=== PATIENT | female | born 1950 | race Caucasian/White ===

== ENCOUNTER 2021-02-08 21:14 | Inpatient (IN) | payer OTHER, MEDICAID ==
[~2021-02-08] VITALS: Ht 167.6 cm; Wt 58.0 kg
[~2021-02-08 21:14] MED LIST: ACET325T9 PO; ALPR1TAB2 PO; GUAI100L12 PO; HYDR-2759 PO; IPRA3AMP29 NEB; LINZESS145 MCG PO; LISI-130 PO; PANT40TA77 PO; POLY17PO52 PO; POTA-121 PO; TRAZ-118 PO; amlodipine; fluoxetine; simvastatin
[2021-02-08] MEDS ORDERED: IV NORMAL SALINE 1000ML BAG 1,000 ML IV ONE (21:30)
[2021-02-08 21:49] LABS: BASO % 0 % (0-3); EOS # 0.2 x10^3/uL (0.0-0.7); EOS % 3 % (0-3); HEMATOCRIT 34.5 % (36.0-47.0); HEMOGLOBIN 11.3 g/dL (12.0-15.5); LYMPH % 12 % (24-48); MEAN CORPUSCULAR HEMOGLOBIN 30 pg (25-35); MEAN CORPUSCULAR HGB CONC 33 g/dL (31-37); MEAN CORPUSCULAR VOLUME 93 fL (79-100); MONO # 0.5 x10^3/uL (0.0-1.1); MONO % 6 % (0-9); NEUT % 80 % (31-73); PLATELET COUNT 220 x10^3/uL (140-400); RED BLOOD COUNT 3.72 x10^6/uL (3.50-5.40); RED CELL DISTRIBUTION WIDTH 14.9 % (11.5-14.5); WHITE BLOOD COUNT 8.8 x10^3/uL (4.0-11.0)
[2021-02-08 21:58] LABS: CALCIUM 8.8 mg/dL (8.5-10.1); CREATININE 2.2 mg/dL (0.6-1.0); GFR 22.1; POTASSIUM 4.4 mmol/L (3.5-5.1)
[2021-02-08 22:03] LABS: ALBUMIN/GLOBULIN RATIO 0.9 (1.0-1.7); TOTAL BILIRUBIN 0.4 mg/dL (0.2-1.0); TOTAL PROTEIN 6.4 g/dL (6.4-8.2)
--- NOTE | 2021-02-08 22:51 | RAD ---
STUDY: CT head without contrast INDICATION: Fall. Head injury. COMPARISON: None. TECHNIQUE: Axial CT imaging through the head without the use of intravenous contrast. Sagittal and co denis reformats were obtained. One or more of the following individualized dose reduction techniques were utilized for this examinat ion: 1. Automated exposure control 2. Adjustment of the mA and/or kV according to patient size 3. Use of iterative reconstruction technique. FINDINGS: No acute intracranial hemorrhage. No localized mass effect, midline shift or hydrocephalus. Dick-whit e matter differentiation is maintained. Possible subtle chronic audit intern infarct in the region of t he right caudate head and white matter findings related to chronic microvascular ischemic change. Par enchymal volume is within normal limits. No large scalp hematoma. Unremarkable orbits. No depressed calvarial fracture. IMPRESSION: No acute intracranial abnormality by CT. Intact calvarium. Electronically signed by: JERROD DILLON MD (02/08/2021 10:48 PM) [facility]
--- NOTE | 2021-02-08 23:10 | PHYS DOC ---
Past Medical History Past Medical History: COPD, Diverticulosis Past Surgical History: Other Additional Past Surgical Histo: COLONOSCOPY Smoking Status: Former Smoker Alcohol Use: None General Adult EDM: Chief Complaint: HYPOTENSION HPI: HPI: Patient is a 70 year old female presents for evaluation of generalized weakness fatigue and fall. Patient states throughout the day she has felt dizzy and she states to today she had a fallen onto her buttocks and then hit the back of her head. She denies any loss of consciousness. intermediate states they took patient's blood pressure and noted to be 60s over 30s. Patient was transported to the ER for further evaluation. EMS noted patient's oxygen saturation to be 88% on room air. Review of Systems: Review of Systems: Review of systems: Constitutional symptoms- No fever, no chills. Eyes- No Discharge, No Visual Loss Respiratory symptoms- No shortness of breath, No wheezing, No Dyspnea on Exertion Cardiovascular Systems; No chest pain, No Palpitations, No syncope Gastrointestinal symptoms: NO abdominal pain, no nausea, no vomiting or diarrhea. Genitourinary symptoms: No dysuria. Musculoskeletal symptoms: No back pain No extremity pain. NEUROLOGICAL Symptoms: No headache, no generalized weakness; No focal Weakness Skin: No rash. Heart Score: C/O Chest Pain: N/A Risk Factors: Risk Factors: DM, Current or recent (<one month) smoker, HTN, HLP, family history of CAD, obesity. Risk Scores: Score 0 - 3: 2.5% MACE over next 6 weeks - Discharge Home Score 4 - 6: 20.3% MACE over next 6 weeks - Admit for Clinical Observation Score 7 - 10: 72.7% MACE over next 6 weeks - Early Invasive Strategies Current Medications: Current Medications Medications (Trade) Dose Ordered Sig/[facility] Start Time Stop Time Status Last Admin Dose Admin Sodium Chloride 1,000 ml @ 1,000 mls/hr 1X ONCE 02/08/21 21:30 02/08/21 22:29 DC 02/08/21 22:00 1,000 MLS/HR Allergies: Allergies: Allergies Coded Allergies Type Severity Reaction Last Updated Verified No Known Drug Allergies 02/12/20 No Physical Exam: PE: General: alert, no acute distress. Skin: warm, dry and intact, no erythema, no rash. HENT: bilateral external ears normal, oropharynx moist, nose normal. Head:: Normocephalic, atraumatic. Neck: Trachea midline. Eyes: EOMI, Normal conjunctiva, No drainage CARDIOVASCULAR: Regular rate and rhythm RESPIRATORY: No respiratory distress Back: Full range of motion. MUSCULOSKELETAL: Full range of motion of bilateral upper and lower extremities. GASTROINTESTINAL: Abdomen soft without rebound or guarding. NEUROLOGICAL: Alert and noted to person, place and time. No neurological deficits observed Psychiatric: Cooperative. Normal judgment Current Patient Data: Labs: Laboratory Tests Test 02/08/21 21:40 White Blood Count 8.8 x10^3/uL (4.0-11.0) Red Blood Count 3.72 x10^6/uL (3.50-5.40) Hemoglobin 11.3 g/dL (12.0-15.5) L Hematocrit 34.5 % (36.0-47.0) L Mean Corpuscular Volume 93 fL (79-100) Mean Corpuscular Hemoglobin 30 pg (25-35) Mean Corpuscular Hemoglobin Concent 33 g/dL (31-37) Red Cell Distribution Width 14.9 % (11.5-14.5) H Platelet Count 220 x10^3/uL (140-400) Neutrophils (%) (Auto) 80 % (31-73) H Lymphocytes (%) (Auto) 12 % (24-48) L Monocytes (%) (Auto) 6 % (0-9) Eosinophils (%) (Auto) 3 % (0-3) Basophils (%) (Auto) 0 % (0-3) Neutrophils # (Auto) 7.0 x10^3/uL (1.8-7.7) Lymphocytes # (Auto) 1.0 x10^3/uL (1.0-4.8) Monocytes # (Auto) 0.5 x10^3/uL (0.0-1.1) Eosinophils # (Auto) 0.2 x10^3/uL (0.0-0.7) Basophils # (Auto) 0.0 x10^3/uL (0.0-0.2) Sodium Level 140 mmol/L (136-145) Potassium Level 4.4 mmol/L (3.5-5.1) Chloride Level 106 mmol/L (98-107) Carbon Dioxide Level 22 mmol/L (21-32) Anion Gap 12 (6-14) Blood Urea Nitrogen 49 mg/dL (7-20) H Creatinine 2.2 mg/dL (0.6-1.0) H Estimated GFR (Cockcroft-Gault) 22.1 BUN/Creatinine Ratio 22 (6-20) H Glucose Level 126 mg/dL (70-99) H Calcium Level 8.8 mg/dL (8.5-10.1) Total Bilirubin 0.4 mg/dL (0.2-1.0) Aspartate Amino Transferase (AST) 24 U/L (15-37) Alanine Aminotransferase (ALT) 16 U/L (14-59) Alkaline Phosphatase 113 U/L (46-116) Troponin I Quantitative < 0.017 ng/mL (0.000-0.055) Total Protein 6.4 g/dL (6.4-8.2) Albumin 3.0 g/dL (3.4-5.0) L Albumin/Globulin Ratio 0.9 (1.0-1.7) L Laboratory Tests 02/08/21 21:40 Laboratory Tests 02/08/21 21:40 Vital Signs: Vital Signs Date Time Temp Pulse Resp B/P (MAP) Pulse Ox O2 Delivery O2 Flow Rate FiO2 02/08/21 22:45 79 20 111/57 (75) 99 Nasal Cannula 2.0 02/08/21 21:14 97.4 97.4 EKG: EKG: [] Radiology/Procedures: Radiology/Procedures: [] Impression: INDICATION: Fall. Head injury. COMPARISON: None. TECHNIQUE: Axial CT imaging through the head without the use of intravenous contrast. Sagittal and coronal reformats were obtained. One or more of the following individualized dose reduction techniques were utilized for this examination: 1. Automated exposure control 2. Adjustment of the mA and/or kV according to patient size 3. Use of iterative reconstruction technique. FINDINGS: No acute intracranial hemorrhage. No localized mass effect, midline shift or hydrocephalus. Dick-white matter differentiation is maintained. Possible subtle chronic senior mechanical project manager infarct in the region of the right caudate head and white matter findings related to chronic microvascular ischemic change. Parenchymal vo lume is within normal limits. No large scalp hematoma. Unremarkable orbits. No depressed calvarial fracture. IMPRESSION: No acute intracranial abnormality by CT. Intact calvarium. Course & Med Decision Making: Course & Med Decision Making Pertinent Labs and Imaging studies reviewed. (See chart for details) []Treatment with IV fluids. Patient without any repeat episodes of hypotension. Patient admitted to Hospital. Discussed patient with PCP and Dr Cassidy. Dayne Disclaimer: Dayne Disclaimer: This electronic medical record was generated, in whole or in part, using a voice recognition dictation system. Departure Departure Impression: Primary Impression: Hypokalemia Additional Impressions: Dizziness Fall Acute renal failure Disposition: ADMITTED INPATIENT Admitting Physician: Nito Cassidy Condition: STABLE Referrals: MONISHA PENA MD (PCP) SHAHRZAD QUISPE DO Feb 08, 2021 23:10
[2021-02-09] VITALS (7 sets, daily range): BP systolic 86–131; BP diastolic 41–57
[2021-02-09] MEDS ORDERED: IV NORMAL SALINE 1000ML BAG 1,000 ML IV ONE (00:30)
[2021-02-09] MEDS ORDERED: ONDANSETRON PF 4 MG/2 ML VIAL. IVP PRN (03:15)
--- NOTE | 2021-02-09 04:35 | EKG ---
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
[2021-02-09] MEDS ORDERED: LINZESS145 MCG PO (05:47)
[2021-02-09] MEDS ORDERED: LOPE2TAB27 PO (05:47)
[2021-02-09] MEDS ORDERED: ATOR10TA60 PO (05:47)
[2021-02-09] MEDS ORDERED: GABA-585 PO (05:47)
[2021-02-09] MEDS ORDERED: VENTOLIN HFA18 GM INH (05:47)
[2021-02-09] MEDS ORDERED: BUDE10.2 IH (05:47)
[2021-02-09] MEDS ORDERED: AMLO-187 PO (05:47)
[2021-02-09] MEDS ORDERED: QUET50TA5 PO (05:47)
[2021-02-09] MEDS ORDERED: IPRA3AMP29 NEB (05:47)
[2021-02-09] MEDS ORDERED: ALPR1TAB6 PO (05:47)
[2021-02-09] MEDS ORDERED: PARO20TA3 PO (05:47)
[2021-02-09] MEDS ORDERED: TOPI50TA38 PO (05:47)
[2021-02-09] MEDS ORDERED: POLY17PO29 PO (05:47)
[2021-02-09] MEDS: IV NORMAL SALINE 1000ML BAG 1,000 ML IV SCH ×2 (05:55→16:35)
--- NOTE | 2021-02-09 10:21 | PDOC ---
Provider Note Date of Service: DATE: 02/09/21 TIME: 10:21 Provider Note dictated Justifications for Admission Other Justification JEANNETTE CAMPBELL MD Feb 09, 2021 10:21
[2021-02-09] MEDS ORDERED: NON FORMULARY ITEM (Albuterol Sulfate (Ventolin Hfa Inhaler) 2 PUFF) INH SCH (12:00)
[2021-02-09] MEDS: BUDESONIDE 0.5 MG/2 ML NEBU. NEB SCH ×2 (12:00→20:00)
--- NOTE | 2021-02-09 13:41 | HP ---
ADMIT DATE: 02/09/2021 CHIEF COMPLAINT: Weakness and dizziness. HISTORY OF PRESENT ILLNESS: A 70-year-old white female, patient of Dr. Rowley and I am covering for Dr. Cassidy. The patient has had about a month of weakness, dizziness, fatigue, low energy and was found to be hypotensive in the ER. She takes at least 2 blood pressure medicines, amlodipine and lisinopril, in maximum doses to contribute to this. She has been given some fluids and meds held so far and she is feeling a little better at this point. She has not seen Dr. Rowley on lab work for about 6 months. PAST HISTORY: Multiple meds listed per the chart. No known allergies. No other serious known medical problems. She takes antidepressants and Seroquel for an unknown psychiatric diagnosis. SOCIAL HISTORY: Smoker, nondrinker, , not employed. FAMILY HISTORY: Unremarkable. REVIEW OF SYSTEMS: Unremarkable. OBJECTIVE: ENT: Mouth looks dry. Mucosa pink and moist. Sclerae are clear. TMs and pharynx normal. NECK: Revealed no carotid bruit, stiffness, masses or nodes. LUNGS: Clear, without tachypnea. CARDIOVASCULAR: Regular rate. No tachycardia or murmur. ABDOMEN: Soft, benign and nontender. EXTREMITIES: Skin turgor decreased. Pedal pulses decreased. No active joint or skin lesions. NEUROLOGIC: Sluggish responsive, oriented x 4. No focal findings are seen. Moves all extremities. Gait was not tested. ASSESSMENT: Hypotension, drug induced, most likely from amlodipine and lisinopril. She also has some degree of acute kidney injury. Preexisting lab 1 year ago showing a GFR that was normal. This is likely due to vasomotor nephropathy from dehydration and drug-induced hypotension. PLAN: Hold antihypertensives. Continue saline hydration and we will follow renal function accordingly. STACEY/SUKHDEV/RAUDEL DR: Luh TID: [id number]
[2021-02-09] MEDS: POTASSIUM CHLORIDE 20 MEQ TABLET.ER. PO SCH (14:18)
[2021-02-09] MEDS: ALPRAZolam 1 MG TABLET PO SCH ×2 (14:18→20:49)
[2021-02-09] MEDS: GABAPENTIN 300 MG CAPSULE. PO SCH (14:18)
[2021-02-09] MEDS: QUEtiapine 50 MG TAB.ER.24H. PO SCH (14:19)
[2021-02-09] MEDS: IV DEXTROSE 5% - 0.9 % NACL 1,000 ML IV SCH (14:22)
[2021-02-09] MEDS: IPRATRPIUM/ALBUTEROL 0.5/2.5MG 3 ML NEBU. NEB SCH ×2 (15:06→20:00)
[2021-02-09 16:52] LABS: BILIRUBIN,URINE NEGATIVE (NEG); CLARITY,URINE CLEAR; COLOR,URINE YELLOW; NITRITE,URINE NEGATIVE (NEG); PH,URINE 5.5 (<5.0-8.0); PROTEIN,URINE NEGATIVE (NEG-TRACE)
[2021-02-09 17:04] LABS: HYALINE CASTS, URINE FEW /HPF
[2021-02-09 17:05] LABS: BACTERIA,URINE 0 /HPF (0-FEW); RBC,URINE 0 /HPF (0-2)
[2021-02-09] MEDS: LUBIPROSTONE 24 MCG CAPSULE PO SCH (18:08)
[2021-02-09] MEDS: TOPIRAMATE 25 MG TABLET. PO SCH (20:48)
[2021-02-09] MEDS: ATORVASTATIN CALCIUM 10 MG TABLET. PO SCH (20:49)
[2021-02-09] MEDS: traZODone 50 MG TABLET. PO SCH (20:49)
[2021-02-09] MEDS ORDERED: NON FORMULARY ITEM (Budesonide/Formoterol Fumarate (Symbicort 160-4.5 Mcg Inhaler) 2 PUFF) IH SCH (21:00)
[2021-02-10 03:00] VITALS: BP 110/50
[2021-02-10] MEDS: IV DEXTROSE 5% - 0.9 % NACL 1,000 ML IV SCH ×2 (04:06→12:55)
[2021-02-10 04:37] LABS: CALCIUM 8.3 mg/dL (8.5-10.1); CREATININE 0.8 mg/dL (0.6-1.0); GFR 71.1; POTASSIUM 4.1 mmol/L (3.5-5.1)
[2021-02-10] MEDS: BUDESONIDE 0.5 MG/2 ML NEBU. NEB SCH ×2 (06:18→19:33)
[2021-02-10] MEDS: IPRATRPIUM/ALBUTEROL 0.5/2.5MG 3 ML NEBU. NEB SCH ×4 (06:18→19:32)
[2021-02-10] MEDS: ACETAMINOPHEN 325 MG TABLET. PO PRN ×2 (06:54→20:25)
[2021-02-10 07:00] VITALS: BP 138/62
[2021-02-10] MEDS: POLYETHYLENE GLYCOL 3350 17 GM PACKET. PO SCH (09:00)
[2021-02-10] MEDS: ALPRAZolam 1 MG TABLET PO SCH ×3 (09:16→20:23)
[2021-02-10] MEDS: PARoxetine 20 MG TABLET PO SCH (09:16)
[2021-02-10] MEDS: PANTOPRAZOLE 40 MG TABLET.DR. PO SCH (09:16)
[2021-02-10] MEDS: LUBIPROSTONE 24 MCG CAPSULE PO SCH ×2 (09:16→17:47)
[2021-02-10] MEDS: POTASSIUM CHLORIDE 20 MEQ TABLET.ER. PO SCH (09:16)
[2021-02-10] MEDS: GABAPENTIN 300 MG CAPSULE. PO SCH (09:16)
[2021-02-10 11:00] VITALS: BP 124/68
--- NOTE | 2021-02-10 11:44 | NUR ---
SW following. Discussed with RN, pt from [facility], 2L (does not use oxygen at home), cardiac diet, COVID-19 negative. Pt apparently wanting to go back to a facility she was at in [place]. PT/OT being ordered. SW will continue to follow.
[2021-02-10] MEDS: QUEtiapine 50 MG TAB.ER.24H. PO SCH (13:50)
[2021-02-10 15:00] VITALS: BP 122/64
--- NOTE | 2021-02-10 18:50 | NUR ---
Pt has been refusing to have IV restarted. Current IV flushes fine but beeps. Unable to administer fluids through current IV. Will encourage pt to drink fluids.
[2021-02-10 19:00] VITALS: BP 126/67
[2021-02-10] MEDS: MIRTAZAPINE 15 MG TABLET PO SCH (20:24)
[2021-02-10] MEDS: ATORVASTATIN CALCIUM 10 MG TABLET. PO SCH (20:24)
[2021-02-10] MEDS: traZODone 50 MG TABLET. PO SCH (20:24)
[2021-02-10] MEDS: TOPIRAMATE 25 MG TABLET. PO SCH (20:27)
[2021-02-10 22:42] VITALS: BP 96/47
[2021-02-11] MEDS: IV DEXTROSE 5% - 0.9 % NACL 1,000 ML IV SCH ×2 (02:15→15:35)
[2021-02-11 03:41] VITALS: BP 114/54
[2021-02-11 07:00] VITALS: BP 155/69
[2021-02-11] MEDS: BUDESONIDE 0.5 MG/2 ML NEBU. NEB SCH ×2 (07:30→20:26)
[2021-02-11] MEDS: IPRATRPIUM/ALBUTEROL 0.5/2.5MG 3 ML NEBU. NEB SCH ×4 (07:30→20:26)
[2021-02-11] MEDS: POTASSIUM CHLORIDE 20 MEQ TABLET.ER. PO SCH (08:00)
[2021-02-11] MEDS: GABAPENTIN 300 MG CAPSULE. PO SCH (08:49)
[2021-02-11] MEDS: PANTOPRAZOLE 40 MG TABLET.DR. PO SCH (08:49)
[2021-02-11] MEDS: QUEtiapine 50 MG TAB.ER.24H. PO SCH (08:50)
[2021-02-11] MEDS: ACETAMINOPHEN 325 MG TABLET. PO PRN ×2 (08:52→18:21)
[2021-02-11] MEDS: ALPRAZolam 1 MG TABLET PO SCH ×3 (08:52→20:57)
[2021-02-11] MEDS: LUBIPROSTONE 24 MCG CAPSULE PO SCH ×2 (08:53→18:20)
[2021-02-11] MEDS: PARoxetine 20 MG TABLET PO SCH (09:00)
[2021-02-11] MEDS: POLYETHYLENE GLYCOL 3350 17 GM PACKET. PO SCH (09:00)
--- NOTE | 2021-02-11 10:58 | NUR ---
BENNETT following. Discussed with RN, pt from [facility], wants to go to a facility. [facility] contacted BENNETT to advise family wanted the referral sent to [facility] (pt was stating she wanted to go to the facility in [place]). BENNETT faxed referral to [facility] sans OT note. Awaiting acceptance decision and insurance auth. BENNETT will continue to follow. Addendum: 02/11/21 at 1210 by ZENAIDA GUAJARDO Pt accepted at [facility] pending insurance auth.
[2021-02-11 11:00] VITALS: BP 129/48
[2021-02-11] MEDS ORDERED: BUTALB/APAP/CAFEIN 50/325/40MG TABLET. PO PRN (13:45)
--- NOTE | 2021-02-11 13:59 | PN ---
DATE: 02/10/2021 LOCATION: She is in room 588. SUBJECTIVE: This 70-year-old female, remains hospitalized with acute kidney injury, dehydration, anorexia, weakness, failure to thrive. Upon interview today, she sounds extremely depressed. Does complain of some nondescript diffuse abdominal pain. OBJECTIVE: VITAL SIGNS: Stable. She is afebrile. She is off of antihypertensives and running decent blood pressures. GENERAL: She is awake and alert. CHEST: Clear. HEART: Regular. ABDOMEN: Benign with a little bit of diffuse tenderness on palpation rios. NEUROLOGIC: Affect significant depression. Acute kidney injury is essentially resolved with her creatinine going from 2.2 on admission on the to 1.1 today. ASSESSMENT: 1. Hypotension, resolved. 2. Dehydration with acute kidney injury, resolved. 3. Severe depression. PLAN: Continue present medications. We will add medicine for depression. Otherwise, continue present treatment and observe. AGA/CAMPBELL DR: Leanne TID: [id number]
--- NOTE | 2021-02-11 14:00 | PN ---
DATE: 02/11/2021 LOCATION: She is in room 588. SUBJECTIVE: This 70-year-old female remains hospitalized with dehydration, acute kidney injury, hypotension. She is improving in all regards with her kidney function back to normal. Blood pressures improving, but not needing her current antihypertensive. She is still talking about not wanting to return to assisted living and wants to be in a detention. We are doing therapy evaluation to see if she qualifies for [facility] at discharge with possible placement at that point in time at the detention whenever she does the same. OBJECTIVE: VITAL SIGNS: Stable. She is afebrile. Again, blood pressures are better. GENERAL: She is awake and alert, still appears profoundly depressed. CHEST: Clear. HEART: Regular. ABDOMEN: Benign. LABORATORY DATA: Creatinine of 2.2 on admission, is decreased to 0.8 with hydration. ASSESSMENT: 1. Acute kidney injury due to dehydration. 2. Depression. 3. Hypotension, improving. PLAN: Continue same, evaluate for possible skilled transfer as she is at the point where she should be able to be discharged. KARLENE/MOIRA DR: Leanne TID: [id number]
[2021-02-11 15:15] VITALS: BP 133/73
--- NOTE | 2021-02-11 16:25 | RAD ---
XR FOOT_LEFT 2 VIEWS History: Pain and swelling. Comparison: None. Technique: AP and lateral views of left foot. Findings: Osseous mineralization is normal. There is mild irregularity at the base of the fourth toe proximal p halanx which may be due to positioning. This is not seen well in the lateral view. No significant deg enerative changes. Soft tissues are unremarkable. Impression: 1. Irregularity at the base of the fourth toe proximal phalanx may represent fracture or artifact of positioning. If there is concern for fracture in the left foot, consider additional oblique view for improved evaluation. Electronically signed by: Antonio Linares MD (02/11/2021 4:23 PM) [id number]
[2021-02-11 19:00] VITALS: BP 120/64
[2021-02-11] MEDS: TOPIRAMATE 25 MG TABLET. PO SCH (20:57)
[2021-02-11] MEDS: traZODone 50 MG TABLET. PO SCH (20:58)
[2021-02-11] MEDS: ATORVASTATIN CALCIUM 10 MG TABLET. PO SCH (20:58)
[2021-02-11] MEDS: MIRTAZAPINE 15 MG TABLET PO SCH (20:58)
[2021-02-11 23:00] VITALS: BP 135/62
[2021-02-12 03:00] VITALS: BP 143/79
[2021-02-12] MEDS: IV DEXTROSE 5% - 0.9 % NACL 1,000 ML IV SCH (04:55)
[2021-02-12 07:00] VITALS: BP 155/68
[2021-02-12] MEDS: PANTOPRAZOLE 40 MG TABLET.DR. PO SCH (07:18)
[2021-02-12] MEDS ORDERED: MIRT-7 PO (07:38)
--- NOTE | 2021-02-12 07:40 | SNU/HH DC ---
DISCHARGE ORDERS DISCHARGE INFORMATION: DISCHARGE DATE: Feb 12, 2021 FINAL DIAGNOSIS Problems Medical Problems: (1) Acute renal failure Status: Acute (2) Dizziness Status: Acute (3) Fall Status: Acute CONDITION ON DISCHARGE: Stable CODE STATUS: Code Status: Full MCFP: SNF STAY <30 DAYS: Yes HOSPICE: HOSPICE: No HOSPICE EVAL & TREAT: No LTAC: ADMIT TO LTAC: No POST DISCHARGE ORDERS: ACTIVITY ORDERS: Activity as tolerated WEIGHT BEARING STATUS: As tolerated DIET AFTER DISCHARGE: Regular WOUND/INCISION CARE: No wound care needed CHECKS AFTER DISCHARGE: CHECKS AFTER DISCHARGE: Check blood press - daily, Weigh Yourself Daily TREATMENT/EQUIPMENT ORDERS: ADAPTIVE EQUIPMENT NEEDED: None Physical Therapy For: Evalulation/Treatment Occupational Therapy For: Evaluation/Treatment DISCHARGE MEDICATIONS: Home Meds Active Scripts Mirtazapine (MIRTAZAPINE) 15 Mg Tablet, 30 MG PO QHS for depression for 30 Days, #60 TAB Prov:JONATAN SOLER MD 02/12/21 Pantoprazole Sodium (PANTOPRAZOLE SODIUM ) 40 Mg Tablet.dr, 40 MG PO DAILYAC for GERD for 30 Days, #30 TAB.SR Prov:JAMAL GUPTA MD 02/14/20 Potassium Chloride (KLOR-CON M20) 20 Meq Tab.er.prt, 20 MEQ PO DAILYWBKFT for SUPPLEMENT for 30 Days, #30 TAB.SR Prov:JAMAL GUPTA MD 02/14/20 Acetaminophen (TYLENOL) 325 Mg Tablet, 650 MG PO PRN Q4HRS PRN for TEMP OVER 100.4F OR MILD PAIN for 30 Days, #60 TAB Prov:JAMAL GUPTA MD 02/14/20 Reported Medications Albuterol Sulfate (VENTOLIN HFA INHALER) 18 Gm Hfa.aer.ad, 2 PUFF INH Q4HRS for FOR ASTHMA, EACH 0 Refills 02/09/21 Loperamide Hcl (LOPERAMIDE) 2 Mg Tablet, 2 MG PO Q4HRS PRN for DIARRHEA, TAB 02/09/21 Ipratropium/Albuterol Sulfate (DUONEB 0.5-3(2.5) MG/3 ML) 3 Ml Ampul.neb, 3 ML NEB Q4HRS PRN for SOA/wheezing, EACH 02/09/21 Topiramate (TOPAMAX) 50 Mg Tablet, 1 TAB PO HS for headache for 30 Days, #30 TAB 0 Refills 02/09/21 Quetiapine Fumarate (SEROQUEL) 50 Mg Tablet, 1 TAB PO DAILY for delusions, #30 TAB 2 Refills 02/09/21 Polyethylene Glycol 3350 (MIRALAX) 17 Gm Powd.pack, 1 PACKET PO DAILY for constipation for 2 Days, #2 PACKET 0 Refills dissolve in water 02/09/21 Paroxetine Hcl (PAROXETINE HCL) 20 Mg Tablet, 50 MG PO DAILY for depression/anxiety, #30 TAB 5 Refills 02/09/21 Linaclotide (LINZESS) 145 Mcg Capsule, 145 MCG PO DAILY07 for IRRITABLE BOWEL, CAP 02/09/21 Gabapentin (GABAPENTIN ) 100 Mg Capsule, 100 MG PO TID for NEUROGENIC PAIN, CAP 02/09/21 Budesonide/Formoterol Fumarate (SYMBICORT 160-4.5 MCG INHALER) 10.2 Gm Hfa.aer.ad, 2 PUFF IH BID for SOA, #10.6 GM 3 Refills 02/09/21 Atorvastatin Calcium (ATORVASTATIN CALCIUM) 10 Mg Tablet, 10 MG PO HS for FOR CHOLESTEROL, #30 TAB 0 Refills 02/09/21 Alprazolam (ALPRAZOLAM) 1 Mg Tablet, 1 TAB PO TID for anxiety, #90 TAB 02/09/21 Trazodone Hcl (TRAZODONE HCL) 50 Mg Tablet, 1 TAB PO QHS for sleep, #30 TAB 02/13/20 Discontinued Reported Medications Amlodipine Besylate (AMLODIPINE BESYLATE) 10 Mg Tablet, 10 MG PO DAILY for HTN, TAB 02/09/21 Lisinopril (LISINOPRIL) 40 Mg Tablet, 1 TAB PO DAILY for htn, #30 TAB 5 Refills 02/13/20 JONATAN SOLER MD Feb 12, 2021 07:40
[2021-02-12] MEDS: IPRATRPIUM/ALBUTEROL 0.5/2.5MG 3 ML NEBU. NEB SCH ×2 (07:44→11:25)
[2021-02-12] MEDS: BUDESONIDE 0.5 MG/2 ML NEBU. NEB SCH (07:44)
--- NOTE | 2021-02-12 08:07 | DS ---
DATE OF DISCHARGE: 02/12/2021 PRIMARY DIAGNOSES: Hypotension, acute kidney injury. ADDITIONAL DIAGNOSIS: Depression. CHIEF COMPLAINT AND HISTORY OF PRESENT ILLNESS: This 70-year-old female was admitted through the Emergency Room with dizziness, fatigue, no energy, had been found to be hypotensive. She also had acute kidney injury with creatinine up to 2.2. SUMMARY OF STAY: The patient was admitted. Blood pressure meds were held. Her kidney function returned to normal. She began to eat and drink. No blood pressure medicines were felt necessary throughout the stay. She was weak and determined need therapy and rehab through SNU by therapy and this was accomplished on the day of dismissal. DISPOSITION: The patient is discharged to SNU. DIET: Regular diet. ACTIVITY: As tolerated. PT and OT to follow. DISCHARGE MEDICATIONS: Listed on the med rec and have been addressed. DANIA/PARKER DR: Leanne TID: [id number]
[2021-02-12] MEDS: POLYETHYLENE GLYCOL 3350 17 GM PACKET. PO SCH (09:00)
[2021-02-12] MEDS: LUBIPROSTONE 24 MCG CAPSULE PO SCH (09:21)
[2021-02-12] MEDS: ALPRAZolam 1 MG TABLET PO SCH (09:21)
[2021-02-12] MEDS: POTASSIUM CHLORIDE 20 MEQ TABLET.ER. PO SCH (09:21)
[2021-02-12] MEDS: GABAPENTIN 300 MG CAPSULE. PO SCH (09:21)
[2021-02-12] MEDS: QUEtiapine 50 MG TAB.ER.24H. PO SCH (09:21)
[2021-02-12] MEDS: PARoxetine 20 MG TABLET PO SCH (09:22)
[2021-02-12 11:00] VITALS: BP 146/72
--- NOTE | 2021-02-12 11:23 | NUR ---
SW following. Discussed with RN, discharge orders faxed to [facility], insurance has approved transfer to SNF. RN notified. [facility] arranged transportation for 1500.
--- NOTE | 2021-02-12 16:27 | NUR ---
Discharge Note: BERNARDO HOUSTON [address] Discharge instructions and discharge home medications reviewed with [facility] and a copy given. All questions have been answered and understanding verbalized. The following instructions and handouts were given: transfer of care Discontinued lines and drains: 20 gauge right AC, tip intact, patient tolerated well. Patient discharged to [facility] via transportation.
== END 2021-02-12 15:20 | DRG 683 ==
LOC: ER 21:14 → 5 SOUTH 02-09 03:29
PROVIDERS: ADMIT Family Medicine; ATTEND Family Medicine
DX: N17.9 Acute kidney failure, unspecified (principal); E44.1 Mild protein-calorie malnutrition; I95.2 Hypotension due to drugs; E87.6 Hypokalemia; E86.0 Dehydration; F17.200 Nicotine dependence, unspecified, uncomplicated; F32.9 Major depressive disorder, single episode, unspecified; J44.9 Chronic obstructive pulmonary disease, unspecified; R62.7 Adult failure to thrive; Z20.822 Contact with and (suspected) exposure to COVID-19; T46.1X5A Adverse effect of calcium-channel blockers, initial encounter; T46.4X5A Adverse effect of angiotensin-converting-enzyme inhibitors, initial encounter; Z04.3 Encounter for examination and observation following other accident; K57.90 Diverticulosis of intestine, part unspecified, without perforation or abscess without bleeding; W18.30XA Fall on same level, unspecified, initial encounter; Y93.89 Activity, other specified; Y92.89 Other specified places as the place of occurrence of the external cause; Y99.8 Other external cause status; Z68.20 Body mass index [BMI] 20.0-20.9, adult
CPT/HCPCS: 36415; 70450; 73620; 80048; 80053; 81001; 84484; 85025; 87040; 87426; 93005; 94640; 94760; 96360; 96361; J7030; J7042; U0003; U0005; 99285-25; G0378; J7626